=== PATIENT | male | born 1955 | race Caucasian/White ===

== ENCOUNTER 2017-03-03 20:58 | Inpatient (IN) | payer BC ==
[2017-03-03] MEDS ORDERED: NITROGLYCERIN SL TABS 0.4 MG TAB SUBLINGUAL PRN (21:34)
[2017-03-03] MEDS ORDERED: MORPHINE SULFATE 4 MG/ML SYRINGE IV PRN (21:34)
[2017-03-03] MEDS ORDERED: DILTIAZEM 5 MG/ML 5 ML VIAL IVP STA (21:34)
[2017-03-03] MEDS ORDERED: ASPIRIN 81 MG CHEW PO STA (21:34)
[2017-03-03] MEDS ORDERED: DILTIAZEM 125 MG in SODIUM CHLORIDE 0.9% 100 ML IV ONE (21:45)
[2017-03-03] MEDS: HEPARIN SODIUM,PORCINE/D5W PMX 25,000 UNIT in DEXTROSE/WATER 1 500ML.BAG IV SCH (22:53)
--- NOTE | 2017-03-03 23:12 | ED ---
General Adult HPI - General Chief complaint: Arrhythmia/Palpitations Stated complaint: A Fib Time Seen by Provider: 03/03/17 21:20 Source: patient, RN notes reviewed, old records reviewed Mode of arrival: EMS Limitations: no limitations - History of Present Illness Initial comments: This is a 61-year-old male the ER for evaluation. Patient is a transfer patient was accepted in transfer regards to shortness of breath, patient found to be in A. fib with RVR which is new onset for this patient. Patient has no noted new medical history. Having occasional pain, mild chest pain. No fevers no cough no congestion, no travel history denies drugs or alcohol. - Related Data Home Medications Medication Instructions Recorded Confirmed Ibuprofen [Motrin] 400 mg PO BID PRN 03/03/17 03/03/17 diphenhydrAMINE HCL [Benadryl] 25 mg PO BID PRN 03/03/17 03/03/17 Allergies Allergy/AdvReac Type Severity Reaction Status Date / Time No Known Allergies Allergy Verified 03/03/17 21:24 Review of Systems ROS Statement: Those systems with pertinent positive or pertinent negative responses have been documented in the HPI. ROS Other: All systems not noted in ROS Statement are negative. Past Medical History Past Medical History: No Reported History Additional Past Medical History / Comment(s): testicular cancer History of Any Multi-Drug Resistant Organisms: None Reported Past Surgical History: Hernia Repair, Orthopedic Surgery Additional Past Surgical History / Comment(s): pectoral muscle surgery, Past Psychological History: No Psychological Hx Reported Smoking Status: Never smoker Past Alcohol Use History: Occasional Past Drug Use History: None Reported General Exam Limitations: no limitations General appearance: alert, in no apparent distress Head exam: Present: atraumatic, normocephalic, normal inspection Eye exam: Present: normal appearance, PERRL, EOMI. Absent: scleral icterus, conjunctival injection, periorbital swelling ENT exam: Present: normal exam, mucous membranes moist Neck exam: Present: normal inspection. Absent: tenderness, meningismus, lymphadenopathy Respiratory exam: Present: normal lung sounds bilaterally. Absent: respiratory distress, wheezes, rales, rhonchi, stridor Cardiovascular Exam: Present: tachycardia, irregular rhythm, normal heart sounds. Absent: systolic murmur, diastolic murmur, rubs, gallop, clicks GI/Abdominal exam: Present: soft, normal bowel sounds. Absent: distended, tenderness, guarding, rebound, rigid Extremities exam: Present: normal inspection, full ROM, normal capillary refill. Absent: tenderness, pedal edema, joint swelling, calf tenderness Back exam: Present: normal inspection Neurological exam: Present: alert, oriented X3, CN II-XII intact Psychiatric exam: Present: normal affect, normal mood Skin exam: Present: warm, dry, intact, normal color. Absent: rash Course Vital Signs 03/03/17 03/03/17 03/03/17 21:03 21:18 22:18 Temperature 97.9 F Pulse Rate 137 H 155 H Pulse Rate [ 139 H [employer] ] Respiratory 16 18 Rate Blood Pressure 110/86 109/69 O2 Sat by Pulse 94 L 95 Oximetry 03/03/17 23:08 Temperature Pulse Rate 130 H Pulse Rate [ [employer] [place] [employer] ] Respiratory 18 Rate Blood Pressure 104/72 O2 Sat by Pulse 95 Oximetry - Reevaluation(s) Reevaluation #1: 03/03/17 23:11 Patient's transfer paperwork is thoroughly reviewed Reevaluation #2: 03/03/17 23:11 Patient heart is improving with Cardizem, rate control EKG Findings - EKG Comments: EKG Findings:: EKG shows A. fib with RVR rate 140, QRS 100, QTc 503 Medical Decision Making - Medical Decision Making 61-year-old ER with new onset A. fib with RVR, patient is admitted for rate control and anticoagulation, patient will be kept on telemetry serial troponins have a cardiac evaluation Critical Care Time Critical Care Time: Yes Total Critical Care Time: 31 Disposition Clinical Impression: Atrial fibrillation, Atrial fibrillation with RVR Disposition: ADMITTED IP TO THIS HOSP Condition: Fair Referrals: Ganga Lizama MD [Primary Care Provider] - 1-2 days
[2017-03-04 02:14] VITALS: BMI 26.9
[2017-03-04 06:35] LABS: Mean Platelet Volume 8.3
[2017-03-04 06:48] LABS: Cholesterol 167 mg/dL (<200); HDL Cholesterol 33 mg/dL (40-60); Triglycerides 114 mg/dL (<150)
[2017-03-04 06:51] LABS: Creatine Kinase 33 U/L (55-170)
[2017-03-04 07:04] LABS: Creatine Kinase MB 0.5 ng/mL (0.0-2.4); Troponin I <0.012 ng/mL (0.000-0.034)
[2017-03-04] MEDS: ATORVASTATIN 80 MG TAB PO SCH (07:58)
[2017-03-04] MEDS: HEPARIN SODIUM,PORCINE 5,000 UNIT/ML 1 ML VIAL IV PRN ×2 (08:05→18:00)
[2017-03-04] MEDS ORDERED: ASPIRIN 325 MG TAB PO SCH (09:00)
[2017-03-04 10:26] LABS: ALT 42 U/L (21-72); AST 20 U/L (17-59); Alkaline Phosphatase 100 U/L (38-126); Anion Gap 8 mmol/L; Blood Urea Nitrogen 24 mg/dL (9-20); Calcium 8.9 mg/dL (8.4-10.2); Carbon Dioxide 26 mmol/L (22-30); Chloride 108 mmol/L (98-107); Glucose 132 mg/dL (74-99); Magnesium 2.2 mg/dL (1.6-2.3); Non-African American GFR(MDRD) >60 (>60 ml/min/1.73 sqM); Potassium 3.8 mmol/L (3.5-5.1); Sodium 142 mmol/L (137-145); Total Bilirubin 0.7 mg/dL (0.2-1.3); Total Protein 5.9 g/dL (6.3-8.2)
--- NOTE | 2017-03-04 11:01 | ECHOF ---
Referral Reason:New-onset A. fib MEASUREMENTS -------- HEIGHT: 180.3 cm WEIGHT: 84.8 kg BP: 112/72 IVSd: 1.0 cm (0.6 - 1.1) LVIDd: 3.5 cm (3.9 - 5.3) LVPWd: 0.9 cm (0.6 - 1.1) IVSs: 1.6 cm LVIDs: 1.5 cm LVPWs: 1.7 cm Ao Diam: 2.9 cm (2.0 - 3.7) AV Cusp: 1.6 cm (1.5 - 2.6) LA Diam: 2.7 cm (2.7 - 3.8) MV EXCURSION: 11.800 mm (> 18.000) MV EF SLOPE: 45 mm/s (70 - 150) EPSS: 0.2 cm RAP: 5.00 mmHg RVSP: 29.68 mmHg FINDINGS -------- Atrial fibrillation. This was a technically good study. Left ventricular wall thickness is normal. Overall left ventricular systolic function is normal with, an EF between 55 - 60 %. The right ventricle is normal in size and function. The left atrium is normal in size. The right atrium is normal in size. The aortic valve is trileaflet, and appears structurally normal. No aortic stenosis or regurgitation. The mitral valve leaflets are mildly thickened. There is trace mitral regurgitation. Trace tricuspid regurgitation present. The right ventricular systolic pressure, as measured by Doppler, is 29.68mmHg. Pulmonic valve appears structurally normal. The aortic root size is normal. The pericardium is normal. CONCLUSIONS -------- 1. Atrial fibrillation. 2. There is trace mitral regurgitation. 3. Trace tricuspid regurgitation present. 4. The right ventricular systolic pressure, as measured by Doppler, is 29.68mmHg. 5. Pulmonic valve appears structurally normal. 6. The aortic root size is normal. 7. The pericardium is normal. 8. This was a technically good study. 9. Left ventricular wall thickness is normal. 10. Overall left ventricular systolic function is normal with, an EF between 55 - 60 %. 11. The right ventricle is normal in size and function. 12. The left atrium is normal in size. 13. The right atrium is normal in size. 14. The aortic valve is trileaflet, and appears structurally normal. No aortic stenosis or regurgitation. 15. The mitral valve leaflets are mildly thickened. GLOBAL PRESIDENT: Anh Gomez RDCS
--- NOTE | 2017-03-04 11:29 | P.CRDCN ---
History of Present Illness Consult date: 03/04/17 Requesting physician: Keegan Herman Consult reason: atrial fibrillation Chief complaint: Shortness of breath History of present illness: This is a very pleasant 61-year-old gentleman with history of testicular cancer and prior chemotherapy approximately 20 years ago, no prior documented history of hypertension, no diabetes, no hyperlipidemia who presented to his physician's office with symptoms of shortness of breath. Patient was referred to go to [facility] to have an EKG performed. EKG performed at [facility] revealed atrial fibrillation with a rapid ventricular response, therefore patient was kept in the emergency room and hence transferred here to [facility] for further treatment and evaluation. Patient was initiated on IV heparin as well as IV Cardizem. According to the patient, he states that he gets episodes of shortness of breath occasionally, his primary care doctor told him it is likely episodes of atrial fibrillation and instructed him to take an aspirin every time this happens. So the patient has been experiencing intermittent shortness of breath for which he actually takes ibuprofen, and shortly thereafter symptoms resolve. On this occasion of shortness of breath the symptoms persisted so he did go to his doctor's office for further evaluation. Laboratory data performed at [facility], white blood cell count 9.9, hemoglobin 15.3, platelets 237, sodium 139, potassium 4.7, BUN 26, creatinine 1.0. Troponin less than 0.012. BNP level 6466. Magnesium level II.4. D-dimer 0.5. EKG performed on arrival here showed atrial fibrillation with rapid ventricular response. Echocardiogram with Doppler study was performed which revealed an ejection fraction of 55-60%. Blood pressure on arrival 110/80 with a heart rate of 130. Patient continues to be in atrial fibrillation this morning, heart rate in the 80s. At the time of my examination, patient feels well, denies any palpitations, breathing overall is stable. Past Medical History Past Medical History: No Reported History Additional Past Medical History / Comment(s): testicular cancer History of Any Multi-Drug Resistant Organisms: None Reported Past Surgical History: Hernia Repair, Orthopedic Surgery Additional Past Surgical History / Comment(s): pectoral muscle surgery, Past Psychological History: No Psychological Hx Reported Smoking Status: Never smoker Past Alcohol Use History: Occasional Past Drug Use History: None Reported - Past Family History Father Family Medical History: Myocardial Infarction ([place]) Mother Family Medical History: Cancer Medications and Allergies Home Medications Medication Instructions Recorded Confirmed Type Ibuprofen [Motrin] 400 mg PO BID PRN 03/03/17 03/03/17 History diphenhydrAMINE HCL [Benadryl] 25 mg PO BID PRN 03/03/17 03/03/17 History Allergies Allergy/AdvReac Type Severity Reaction Status Date / Time No Known Allergies Allergy Verified 03/03/17 21:24 Physical Exam Vitals: Vital Signs Temp Pulse Pulse Resp BP BP Pulse Ox 03/04/17 07:47 97.1 F L 87 18 112/72 97 03/04/17 04:00 97.6 F 85 18 97/61 97 03/04/17 03:34 18 03/04/17 02:09 87 16 123/67 95 03/04/17 01:49 97.1 F L 120 H 18 106/77 95 03/04/17 00:59 105 H 18 102/67 95 03/03/17 23:59 118 H 18 108/80 95 03/03/17 23:08 130 H 18 104/72 95 03/03/17 22:18 155 H 18 109/69 95 Intake and Output 03/03/17 03/04/17 03/04/17 22:59 06:59 14:59 Intake Total 200 424.901 Output Total 450 Balance 200 -25.099 Intake: Intake, IV Titration 304.901 Amount Diltiazem 125 mg In 25 Sodium Chloride 0.9% 100 ml @ 5 MG/HR 5 mls/hr IV .Q24H ONE Rx#:[id number] Heparin Sodium,Porcine/ 279.901 D5w Pmx 25,000 unit In Dextrose/Water 1 500ml. bag @ 12 UNITS/KG/HR 19. 59 mls/hr IV .Q24H [facility] Rx #:[id number] Oral 200 120 Output: Urine 450 Other: Voiding Method Urinal Weight 85.1 kg PHYSICAL EXAMINATION: HEENT: Head is atraumatic, normocephalic. Pupils equal, round. Neck is supple. There is no elevated jugular venous pressure. HEART EXAMINATION: S1 and S2 irregularly irregular systolic murmur is heard. CHEST EXAMINATION: Lungs are clear with mild diminished air entry to posterior bases. ABDOMEN: Soft, nontender. Bowel sounds are heard. No organomegaly noted. EXTREMITIES: 2+ peripheral pulses with no evidence of peripheral edema and no calf tenderness noted. NEUROLOGIC patient is awake, alert and oriented -3. . Results 03/04/17 05:58 03/04/17 05:58 Cardiac Enzymes 03/04/17 03/04/17 Range/Units 05:58 05:58 AST 20 (17-59) U/L CK-MB (CK-2) 0.5 (0.0-2.4) ng/mL Troponin I <0.012 (0.000-0.034) ng/mL Coagulation 03/04/17 Range/Units 05:58 APTT 34.4 H (22.0-30.0) sec Lipids 03/04/17 Range/Units 05:58 Triglycerides 114 (<150) mg/dL Cholesterol 167 (<200) mg/dL HDL Cholesterol 33 L (40-60) mg/dL CBC 03/04/17 Range/Units 05:58 Plt Count 183 (150-450) k/uL Comprehensive Metabolic Panel 03/04/17 Range/Units 05:58 Sodium 142 (137-145) mmol/L Potassium 3.8 (3.5-5.1) mmol/L Chloride 108 H (98-107) mmol/L Carbon Dioxide 26 (22-30) mmol/L BUN 24 H (9-20) mg/dL Creatinine 0.95 (0.66-1.25) mg/dL Glucose 132 H (74-99) mg/dL Calcium 8.9 (8.4-10.2) mg/dL AST 20 (17-59) U/L ALT 42 (21-72) U/L Alkaline Phosphatase 100 (38-126) U/L Total Protein 5.9 L (6.3-8.2) g/dL Albumin 3.1 L (3.5-5.0) g/dL Current Medications Generic Name Dose Route Start Last Admin Trade Name Freq PRN Reason Stop Dose Admin Aspirin 325 mg 03/04/17 09:00 03/04/17 07:58 Aspirin PO 325 mg DAILY [facility] Administration Atorvastatin Calcium 80 mg 03/04/17 09:00 03/04/17 07:58 Lipitor PO 80 mg DAILY [facility] Administration Heparin Sodium (Porcine) 0 unit 03/03/17 21:34 03/04/17 08:05 Heparin IV 4,000 unit Q6HR PRN Administration Low PTT Protocol Diltiazem HCl 125 mg/ Sodium 125 mls @ 5 mls/hr 03/03/17 21:45 03/03/17 22:23 Chloride IV 03/04/17 21:44 5 mg/hr .Q24H ONE 5 mls/hr Protocol Administration 5 MG/HR Heparin Sodium/Dextrose 25,000 500 mls @ 19.59 mls/hr 03/03/17 21:45 08:04 unit/ IV Solution IV 15 units/kg/hr .Q24H [facility] 24.49 mls/hr Protocol Titration 12 UNITS/KG/HR Morphine Sulfate 4 mg 03/03/17 21:34 Morphine Sulfate (Inj) IV Q4HR PRN Chest Pain Nitroglycerin 0.4 mg 03/03/17 21:34 Nitrostat SUBLINGUAL Q5M PRN Chest Pain Intake and Output 03/03/17 03/04/17 03/04/17 22:59 06:59 14:59 Intake Total 200 424.901 Output Total 450 Balance 200 -25.099 Intake: Intake, IV Titration 304.901 Amount Diltiazem 125 mg In 25 Sodium Chloride 0.9% 100 ml @ 5 MG/HR 5 mls/hr IV .Q24H [facility] Rx#:[id number] Heparin Sodium,Porcine/ 279.901 D5w Pmx 25,000 unit In Dextrose/Water 1 500ml. bag @ 12 UNITS/KG/HR 19. 59 mls/hr IV .Q24H [facility] Rx #:[id number] Oral 200 120 Output: Urine 450 Other: Voiding Method Urinal Weight 85.1 kg 03/04/17 05:58 03/04/17 05:58 EKG Interpretations (text) EKG shows atrial fibrillation with a rapid ventricular response. Assessment and Plan Plan: Assessment and plan #1 atrial fibrillation with rapid ventricular response, paroxysmal. #2 history of testicular cancer with prior chemotherapy approximately 20 years ago. #3 cardiac risk factors negative for hypertension, no diabetes, no hyperlipidemia, father did have bypass surgery in his 70s. Plan Echocardiogram with Doppler study was performed which revealed normal left ventricular systolic function. We will discontinue the IV Cardizem drip and start the patient on oral beta robles. We will also check free T4 and TSH, check to see if the patient has coverage for one of the newer anticoagulants. Further recommendations to follow. DNP note has been reviewed, I agree with a documented findings and plan of care. Patient was seen and examined.
--- NOTE | 2017-03-04 11:57 | XR ---
EXAMINATION TYPE: XR chest 2V DATE OF EXAM: 03/04/2017 11:49 AM COMPARISON: None HISTORY: 61 year-old male shortness of breath TECHNIQUE: Frontal and lateral views FINDINGS: There is reversed S-shaped scoliosis of the cervicothoracic spine. Clamshell wire fixation of the dayanara rnum is noted. There is mild diffuse interstitial prominence which is probably in part chronic. The h eart is borderline in size. There are small pleural effusions with adjacent atelectasis seen on the l ateral view. No leobardo consolidation. IMPRESSION: 1. Thoracic deformity due to reverse S-shaped scoliosis of the cervicothoracic spine. 2. Borderline heart size with diffuse interstitial prominence. This may in part be chronic. Correlate to exclude mild CHF. 3. Small effusions with adjacent atelectasis and/or consolidation.
[2017-03-04] MEDS: METOPROLOL TARTRATE 25 MG TAB PO SCH ×2 (12:16→21:53)
--- NOTE | 2017-03-04 15:50 | HP ---
DATE OF ADMISSION: 03/03/2017 CHIEF COMPLAINT: Shortness of breath. HISTORY OF PRESENT ILLNESS: This is the first known admission for this 61-year-old white male. He presented to the emergency room with shortness of breath. It had been particularly worse over the last several weeks with exertion. He has had no history of fever, chills, cough, hemoptysis, chest pain, syncope, palpitations, etc. REVIEW OF SYSTEMS: He has had no neurologic problems, change in the vision or the hearing, history of heart disease, abdominal pain, melena, hematochezia, hematemesis, renal disease, diabetes, etc. Past medical history, family history, and personal and social histories reveal that he is currently not taking any medication. He is NOT ALLERGIC TO ANY MEDICATION. He had carcinoma of the testicle in 2001 and was treated with chemo. Surgically he has had repair of a pectus excavatum, hammer toes and herniorrhaphy. Family history, personal and social histories are noncontributory. He is not known to have heart disease. PHYSICAL EXAMINATION: Blood pressure is 142/78 with a pulse of 76, respirations of 32, and he is afebrile. In general he appears to be hypogonad. Head, ears, eyes, nose, mouth and throat are unremarkable. Carotids are normal. Neck veins are not distended. Chest demonstrates a marked kyphosis and scoliosis. Breath sounds are heard on both sides and they are normal. Cardiac exam demonstrates what sounds like normal sinus rhythm, with no murmurs or extra sounds. Abdomen is soft, nontender without visceromegaly or masses. Extremities are normal except for deformities of the hands which he relates to being "double jointed." Neurologically he is intact. IMPRESSION: Shortness of breath, etiology unknown. PLAN: 1. Bed rest. 2. D-dimer. 3. Echocardiogram. 4. Look for various etiologies for shortness of breath. He will be referred to Cardiology. ADDENDUM: When he came to the emergency room he was found to have atrial fibrillation with RVR. He does not believe he has had this before. He cannot take aspirin.
--- NOTE | 2017-03-04 15:52 | PN ---
DATE OF SERVICE: 03/04/2017 CHIEF COMPLAINT: Atrial fibrillation with shortness of breath. HISTORY OF PRESENT ILLNESS: This gentleman is doing a little bit better today. He has had no chest pain. PHYSICAL EXAMINATION: He is still in atrial fibrillation and there are no murmurs or extra sounds. ABDOMEN: Soft, nontender. EXTREMITIES: Normal. IMPRESSION: 1. Shortness of breath. 2. Atrial fibrillation with rapid ventricular response. PLAN: 1. Anticoagulate. 2. Cardiology consult. 3. Echocardiogram. 4. D-dimer and rule out pulmonary embolism.
[2017-03-05] MEDS: HEPARIN SODIUM,PORCINE/D5W PMX 25,000 UNIT in DEXTROSE/WATER 1 500ML.BAG IV SCH (06:42)
[2017-03-05] MEDS: METOPROLOL TARTRATE 25 MG TAB PO SCH ×2 (06:44→20:27)
[2017-03-05 06:54] LABS: Mean Platelet Volume 8.2
[2017-03-05] MEDS ORDERED: DEXTROSE 5% IN WATER 100 ML with AMIODARONE 150 MG IV ONE (07:38)
[2017-03-05] MEDS: ATORVASTATIN 80 MG TAB PO SCH (09:51)
[2017-03-05] MEDS: ASPIRIN 81 MG CHEW PO SCH (09:51)
[2017-03-05] MEDS: AMIODARONE 450 MG in DEXTROSE 5% IN WATER 250 ML IV SCH ×4 (10:15→16:24)
[2017-03-05] MEDS: APIXABAN 5 MG TAB PO SCH ×2 (11:10→20:26)
--- NOTE | 2017-03-05 14:29 | P.PN ---
Subjective Principal diagnosis: Atrial fibrillation This is a very pleasant 61-year-old gentleman with history of testicular cancer and prior chemotherapy approximately 20 years ago, no prior documented history of hypertension, no diabetes, no hyperlipidemia who presented to his physician's office with symptoms of shortness of breath. Patient was referred to go to [facility] to have an EKG performed. EKG performed at [facility] revealed atrial fibrillation with a rapid ventricular response, therefore patient was kept in the emergency room and hence transferred here to [facility] for further treatment and evaluation. Patient was initiated on IV heparin as well as IV Cardizem. Yesterday the IV Cardizem was discontinued and patient was initiated on metoprolol tartrate 25 mg one tablet by mouth twice a day. This morning patient again went into a rapid rate, he was given an amiodarone bolus and started on amiodarone drip. He is on Eliquis for anticoagulation. Echo cardiogram with Doppler study was performed which revealed normal left ventricular systolic function. Objective - Vital Signs Vital signs: Vital Signs Temp 97.6 F 03/05/17 11:00 Pulse 95 03/05/17 11:00 Resp 16 03/05/17 11:00 BP 111/76 03/05/17 11:00 Pulse Ox 96 03/05/17 11:00 Intake & Output 03/04/17 03/05/17 03/05/17 18:59 06:59 18:59 Intake Total 1171.419 90.301 360 Output Total 450 900 Balance 721.419 -809.699 360 Weight 85.7 kg Intake: IV 156.72 Heparin Sodium,Porcine/ 156.72 D5w Pmx 25,000 unit In Dextrose/Water 1 500ml. bag @ 12 UNITS/KG/HR 19. 59 mls/hr IV .Q24H [facility] Rx #:[id number] Intake, IV Titration 534.699 90.301 Amount Diltiazem 125 mg In 25 Sodium Chloride 0.9% 100 ml @ 5 MG/HR 5 mls/hr IV .Q24H [facility] Rx#:[id number] Heparin Sodium,Porcine/ 509.699 90.301 D5w Pmx 25,000 unit In Dextrose/Water 1 500ml. bag @ 12 UNITS/KG/HR 19. 59 mls/hr IV .Q24H [facility] Rx #:[id number] Oral 480 360 Output: Urine 450 900 Other: Voiding Method Urinal # Voids 1 1 - Exam PHYSICAL EXAMINATION: HEENT: Head is atraumatic, normocephalic. Pupils equal, round. Neck is supple. There is no elevated jugular venous pressure. HEART EXAMINATION: Heart S1, S2 irregularly irregular . No murmur or gallop heard. CHEST EXAMINATION: Lungs are clear to auscultation and precussion. No chest wall tenderness is noted on palpation or with deep breathing. ABDOMEN: Soft, nontender. Bowel sounds are heard. No organomegaly noted. EXTREMITIES: 2+ peripheral pulses with no evidence of peripheral edema and no calf tenderness noted. NEUROLOGIC patient is awake, alert and oriented -3. . - Labs CBC & Chem 7: 03/05/17 06:13 03/04/17 05:58 Labs: Abnormal Lab Results - Last 24 Hours (Table) 03/04/17 03/05/17 03/05/17 Range/Units 14:11 00:40 06:19 APTT 43.9 H 48.5 H 53.3 H (22.0-30.0) sec Assessment and Plan Plan: Assessment and plan #1 atrial fibrillation with rapid ventricular response, paroxysmal. #2 history of testicular cancer with prior chemotherapy approximately 20 years ago. #3 cardiac risk factors negative for hypertension, no diabetes, no hyperlipidemia, father did have bypass surgery in his 70s. Plan Echocardiogram with Doppler study below the normal left ventricular systolic function. We will discontinue the IV heparin and start the patient on Eliquis 5 mg one tablet by mouth twice a day. Initiate amiodarone bolus and drip per protocol. DNP note has been reviewed, I agree with a documented findings and plan of care. Patient was seen and examined.
[2017-03-06] MEDS: AMIODARONE 450 MG in DEXTROSE 5% IN WATER 250 ML IV SCH ×4 (00:15→06:53)
--- NOTE | 2017-03-06 06:49 | PN ---
CHIEF COMPLAINT: New onset atrial fibrillation and hypogonadism. HISTORY OF PRESENT ILLNESS: This gentleman is doing fairly well and he has had no problems. He has had no pain, shortness of breath, etc. and he remains in atrial fibrillation with rapid ventricular response at time going up to about 150 beats a minute. PHYSICAL EXAM: Chest is clear. Cardiac exam is unchanged with atrial fibrillation. ABDOMEN: Soft, nontender. IMPRESSION: 1. New-onset atrial fibrillation. 2. History of cancer of the testicle. 3. Hypogonadism. PLAN: Await the results of the echo and any further recommendations from Cardiology. Depending on his MINAL score, he will be anticoagulated appropriately.
[2017-03-06 07:23] LABS: Mean Platelet Volume 8.7
[2017-03-06] MEDS: METOPROLOL TARTRATE 25 MG TAB PO SCH (07:44)
[2017-03-06] MEDS: ASPIRIN 81 MG CHEW PO SCH (07:44)
[2017-03-06] MEDS: ATORVASTATIN 80 MG TAB PO SCH (07:44)
[2017-03-06] MEDS: APIXABAN 5 MG TAB PO SCH ×2 (07:44→17:58)
--- NOTE | 2017-03-06 11:07 | CDI ---
In responding to this query, please exercise your independent professional judgment. The [facility] Coding Staff and Clinical Documentation Specialists appreciate your assistance in clarifying documentation, maintaining compliance with coding guidelines, accurately documenting patients condition and capturing severity of illness. The fact that a question is asked does not imply that any particular answer is desired or expected. Communication forms are a method of clarifying documentation and are not made part of the Legal Health Record. Thank you in advance for your clarification. Last Revision, September [address] [facility] [place] [address] Documentation Clarification Form Date: 03/06/2017 10:50:00 AM From: Eden Valdez RN, CCDS Admit Date: 03/03/2017 9:34:00 PM Patient Name: Jd Edmondson Visit Number: [id number] Dr. Koffi Liu/ Grace Pacheco DNP Atrial fibrillation is documented in the H&P and Cardiology Consult and requires further specificity. History/Risk Factors: hypogonadism Clinical Indicators: Current Documentation new onset atrial fibrillation EKG/telemetry: AF RVR Labs: TSH 9.58 Treatment: Consults: Cardiology IV Amio Drip, IV Cardizem In your professional opinion, can you please clarify the type of atrial fibrillation, if known? Chronic/Permanent Paroxysmal Persistent Other, please specify Unable to determine Please document in your progress notes and discharge summary in order to capture severity of illness and risk of mortality. Include clinical findings that support your diagnosis. FYI: Press F11 to launch patient chart Place X here if this finding has no clinical significance, is not applicable or if you are not able to provide any additional documentation. CRISTINOD
[2017-03-06 12:21] VITALS: BP 138/94; PULSE 68; RESP 18; TEMP 98.4
--- NOTE | 2017-03-06 12:59 | P.PN ---
Subjective 61-year-old male seen and examined currently resting in bed. Patient continues to have episodes of paroxysmal atrial fibrillation with a rapid ventricular response. Currently the monitor showing sinus. Did have an episode around 3: 30 in the morning where the heart rate went up in the 130s. Currently patients being followed by cardiology service for treatment of paroxysmal atrial fibrillation they recommended the beta robles the increase currently on 25 of Lopressor twice a day would increase it to 50 Lopressor twice a day monitor the response patient currently is on eliquis echocardiogram was obtained and showed normal LV systolic function Objective - Vital Signs Vital signs: Vital Signs Temp 98.4 F 03/06/17 12:00 Pulse 68 03/06/17 12:00 Resp 18 03/06/17 12:00 BP 138/94 03/06/17 12:00 Pulse Ox 97 03/06/17 12:00 Intake & Output 03/05/17 03/06/17 03/06/17 18:59 06:59 18:59 Intake Total 932.36 449.982 240 Balance 932.36 449.982 240 Weight 86.8 kg Intake: IV 200 Amiodarone 450 mg In 200 Dextrose 5% in Water 250 ml @ 1 MG/MIN 34.53 mls/ hr IV .Q7H31M [facility] Rx#: [id number] Intake, IV Titration 212.36 249.982 Amount Amiodarone 450 mg In 212.36 249.982 Dextrose 5% in Water 250 ml @ 1 MG/MIN 34.53 mls/ hr IV .Q7H31M [facility] Rx#: [id number] Oral 720 240 Other: Voiding Method Urinal # Voids 1 - Exam Physical exam 61-year-old male resting in bed appears in no acute distress denies heart palpitations dizziness lightheadedness or chest pain Lungs essentially clear adequate air movement Heart S1-S2 audible and regular monitor sinus the rate in the 80s to 90s denying chest pain Abdomen soft nontender Extremities no edema noted - Labs CBC & Chem 7: 03/06/17 06:43 03/04/17 05:58 Assessment and Plan Plan: Impression Present on admission heart palpitation shortness of breath suspect due to episode of atrial fibrillation with a rapid ventricular response Paroxysmal atrial fibrillation History of testicle cancer prior chemotherapy diagnosed 20 years prior Echocardiogram done this admission shows normal LV systolic function Abnormal lab values magnesium 1.4 on admission Plan Await cardiology's recommendations Continue to monitor blood pressure and heart rate adjust the antihypertensive meds as indicated Continue with anticoagulation elquist Increase the Lopressor to 50 twice a day and monitor Repeat labs in the morning Further recommendations pending will follow The above dictated assessment and findings were discussed with dr comfort Escobedo and the plan of care have been dictated as directed. Edilma Merritt nurse practitioner acting as a scribe for dr moyer
[2017-03-06] MEDS ORDERED: METOPROLOL TARTRATE 25 MG TAB PO ONE (13:00)
--- NOTE | 2017-03-06 13:57 | PN ---
DATE OF SERVICE: 03/06/2017 CHIEF COMPLAINT: Atrial fibrillation with rapid ventricular response and hypogonadism. HISTORY OF PRESENT ILLNESS: This gentleman is doing well. He feels well and he has had no chest pain, shortness of breath, etc. and he is back in sinus rhythm. PHYSICAL EXAM: Chest is clear. Cardiac exam is normal. ABDOMEN: Soft, nontender. IMPRESSION: 1. Atrial fibrillation with rapid ventricular response. 2. Hypergonadism following testicular cancer. PLAN: He will probably be able to go home today. We will wait to see what his echocardiogram shows and decide when what his MINAL score is in order to determine what anticoagulant he should be on.
--- NOTE | 2017-03-06 14:43 | P.PN ---
Subjective Principal diagnosis: atrial fibrillation A pleasant 61-year-old gentleman with a history of testicular cancer and prior chemotherapy approximately 20 years ago. He has no prior history of hypertension, diabetes or hyperlipidemia. He presented to his physician's office with symptoms of shortness of breath and was referred to go to [facility] to have an EKG. EKG performed at [place] showed atrial fibrillation with rapid ventricular response and therefore the patient was transferred here to [facility]. He is on Eliquis for anticoagulation. Currently maintaining sinus rhythm, on metoprolol tartrate 50 mg by mouth twice a day. Objective - Vital Signs Vital signs: Vital Signs Temp 98.4 F 03/06/17 12:00 Pulse 68 03/06/17 12:00 Resp 18 03/06/17 12:00 BP 138/94 03/06/17 12:00 Pulse Ox 97 03/06/17 12:00 Intake & Output 03/05/17 03/06/17 03/06/17 18:59 06:59 18:59 Intake Total 932.36 449.982 240 Balance 932.36 449.982 240 Weight 86.8 kg Intake: IV 200 Amiodarone 450 mg In 200 Dextrose 5% in Water 250 ml @ 1 MG/MIN 34.53 mls/ hr IV .Q7H31M [facility] Rx#: [id number] Intake, IV Titration 212.36 249.982 Amount Amiodarone 450 mg In 212.36 249.982 Dextrose 5% in Water 250 ml @ 1 MG/MIN 34.53 mls/ hr IV .Q7H31M [facility] Rx#: [id number] Oral 720 240 Other: Voiding Method Urinal # Voids 1 - Exam PHYSICAL EXAMINATION: HEENT: Head is atraumatic, normocephalic. Pupils equal, round. Neck is supple. There is no elevated jugular venous pressure. HEART EXAMINATION: Heart sounds regular, S1 and S2 normal. No murmur or gallop heard. CHEST EXAMINATION: Lungs are clear to auscultation and precussion. No chest wall tenderness is noted on palpation or with deep breathing. ABDOMEN: Soft, nontender. Bowel sounds are heard. No organomegaly noted. EXTREMITIES: 2+ peripheral pulses with no evidence of peripheral edema and no calf tenderness noted. NEUROLOGIC patient is awake, alert and oriented x3. . - Labs CBC & Chem 7: 05/05/17 06:43 03/04/17 05:58 Assessment and Plan Plan: Assessment and plan #1 paroxysmal atrial fibrillation #2 history of testicular cancer with prior chemotherapy approximately 20 years ago #3 cardiac risk factors negative for hypertension, diabetes and hyperlipidemia, father did have bypass surgery in his 70s From cardiac standpoint, we agree with increasing dose of metoprolol to 50 mg by mouth twice a day. Continue anticoagulation. We anticipate the patient will be discharged within the next 24 hours. AGRONOMY RESEARCH MANAGER note has been reviewed, I agree with a documented findings and plan of care. Patient was seen and examined.
--- NOTE | 2017-03-06 20:35 | DS ---
DATE OF ADMISSION: 03/03/2017 DATE OF DISCHARGE: 03/06/2017 CHIEF COMPLAINT: Palpitations, lightheadedness and chest pain. HISTORY OF PRESENT ILLNESS AND PHYSICAL EXAMINATION: Details of this man's history and physical can be found in the initial workup. LABORATORY STUDIES: While he was in hospital he had laboratory studies, details of which can be found in the laboratory section of his chart. COURSE IN THE HOSPITAL: After admission he was placed on bed rest, started on intravenous fluids, and he had serial EKGs and enzymes and they were normal. He remained in atrial fibrillation with a varying ventricular response. He eventually converted to sinus rhythm and was doing well. It was felt that he could be discharged. He will go home on light activity about the house and he will be on: 1. Apixaban 5 mg twice a day. 2. Metoprolol 50 mg b.i.d. He has his own physician he can follow up with, and we will contact him after discharge via the complex healthcare liaison. FINAL DIAGNOSES: 1. Atrial fibrillation with rapid ventricular response. 2. 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 OPERATIONS: None. CONSULTATIONS: Cardiology. He is improved.
[2017-03-06] MEDS ORDERED: METOPROLOL TARTRATE 50 MG TAB PO SCH (21:00)
== END 2017-03-06 19:06 | disposition home or self-care (01) | DRG 310 ==
LOC: EC 20:58 → 6SEL 21:34
PROVIDERS: ADMIT Family Medicine; ATTEND Family Medicine
DX: I48.0 Paroxysmal atrial fibrillation (principal); E89.5 Postprocedural testicular hypofunction; Z85.47 Personal history of malignant neoplasm of testis; Z92.21 Personal history of antineoplastic chemotherapy; Z79.899 Other long term (current) drug therapy; Z82.49 Family history of ischemic heart disease and other diseases of the circulatory system
CPT/HCPCS: 71020; 80053; 80061; 82550; 82553; 83735; 84439; 84443; 84484; 85049; 85730; 93005; 93306; 96365; 96366; 96368; 96376; 99291

== ENCOUNTER → 2023-12-14 | Outpatient (CLI) | payer MEDICARE ==
--- NOTE | 2023-12-17 15:08 | CT ---
EXAMINATION TYPE: CT chest wo con DATE OF EXAM: 12/14/2023 COMPARISON: None HISTORY: interstitial lung disease CT DLP: 1111 mGycm, Automated exposure control for dose reduction was used. CONTRAST: None TECHNIQUE: Axial images were obtained at 1 mm thick sections at 10 mm intervals. This will limit po rtions of the examination which may not be visualized within the [id number]. Images were obtained in the prone and supine views. FINDINGS: Portion of the thyroid visualized is normal. No suspicious lung nodules or focal infiltrat es are present. Some mild atelectasis in the posterior sulcus may be present. There is some low density increased size structures adjacent to the ascending thoracic aorta measuri ng 1.7 cm, series 9 image 8. This could be a lymph node. The ascending aorta diameter at the level of the main pulmonary artery is 3.8 cm. The main pulmonary artery diameter at the bifurcation is 2.[address] sections are obtained through the upper abdomen. Abdomen is essentially unremarkable. IMPRESSION: 1. There may be an enlarged lymph node identified on supine expiration standard CT chest with contras t could confirm and evaluate for alternative etiologies. 2. Mild atelectatic density may be in the posterior right sulcus.
== END | disposition home or self-care (01) ==
LOC: RADCTMAIN 12:08
PROVIDERS: ATTEND Internal Medicine
DX: J84.9 Interstitial pulmonary disease, unspecified (principal)
CPT/HCPCS: 71250

== ENCOUNTER 2023-12-23 08:33 | Day surgery (SDC) | payer BC, MEDICARE ==
[2023-12-23] MEDS: SODIUM CHLORIDE 0.9% 1,000 ML IV SCH (09:15)
[2023-12-23 09:31] VITALS: RESP 18; TEMP 97.7
[2023-12-23 10:14] LABS: African American GFR (CKD) >90 (>60 ml/min/1.73 sqM); Anion Gap 5 mmol/L; Blood Urea Nitrogen 28 mg/dL (9-20); Calcium 9.4 mg/dL (8.4-10.2); Carbon Dioxide 28 mmol/L (22-30); Chloride 104 mmol/L (98-107); Glucose 106 mg/dL (74-99); Non-African American GFR(CKD) >90 (>60 ml/min/1.73 sqM); Potassium 5.1 mmol/L (3.5-5.1); Sodium 137 mmol/L (137-145)
[2023-12-23] MEDS ORDERED: PROPOFOL 10 MG/ML 20 ML VIAL IV ONE (10:22)
--- NOTE | 2023-12-23 10:41 | P.HPCAR ---
History of Present Illness This is Dr. Arriaga dictating an H/P on this patient The patient was interviewed and examined IMPRESSION / ASSESSMENT: Persistent atrial fibrillation, symptomatic Started on amiodarone in the last week of November Metoprolol dose was increased to 100 mg twice daily for rate control during atrial fibrillation PLAN: Electrical cardioversion today Based on the heart rate in sinus rhythm I will adjust the dose of metoprolol Continue amiodarone 200 mg p.o. daily for the next 3 months and then reduce the dose down to 100 mg p.o. daily Follow TSH and liver function in the future Continue rosuvastatin Continue Eliquis 5 mg twice daily HPI Patient continues to complain of shortness of breath with exertion and activities of daily living He becomes very tired and fatigued No syncope Tolerated amiodarone ROS: No fever chills or rigors, no cough, phlegm or expectoration, no nausea, vomiting or diarrhea, no hematuria, dysuria, no musculoskeletal complaints, no strokes or seizures, no skin lesions. EXAMINATION: 120/87 mmHg pulse rate in the 70s irregular Breath sounds are clear no rhonchi no crackles Heart sounds S1-S2 normal soft systolic murmur Abdomen soft No JVD No lower extremity edema Alert and oriented REVIEW OF LABS, ECG & MEDICAL DATA Sodium 137, potassium 5.1, chloride 104 and bicarb 28 BUN 28 and creatinine 0.8 Normal calcium GFR normal Physical Exam Vitals: Vital Signs Temp Pulse Resp BP Pulse Ox 12/23/23 09:09 97.7 F 78 18 120/87 94 L Intake and Output 12/22/23 12/23/23 12/23/23 22:59 06:59 14:59 Intake Total 170 Balance 170 Intake: IV 170 Other: Weight 77.9 kg Past Medical History Past Medical History: Atrial Fibrillation, Hyperlipidemia Additional Past Medical History / Comment(s): SEE H & P COMPLETED BY DR. ARRIAGA. testicular cancer. insomnia History of Any Multi-Drug Resistant Organisms: None Reported Past Surgical History: Hernia Repair Additional Past Surgical History / Comment(s): pectoral muscle surgery. testical removed. cyst on elbow. bilateral cataract removed. Past Anesthesia/Blood Transfusion Reactions: No Reported Reaction Past Psychological History: No Psychological Hx Reported Smoking Status: Never smoker Past Alcohol Use History: Occasional Past Drug Use History: None Reported - Past Family History Father Family Medical History: Myocardial Infarction ([place]) Mother Family Medical History: Cancer Physical Examination Vital Signs Temp Pulse Resp BP Pulse Ox 12/23/23 09:09 97.7 F 78 18 120/87 94 L Intake and Output 12/22/23 12/23/23 12/23/23 22:59 06:59 14:59 Intake Total 170 Balance 170 Intake: IV 170 Other: Weight 77.9 kg Results 12/23/23 09:11 Comprehensive Metabolic Panel 12/23/23 Range/Units 09:11 Sodium 137 (137-145) mmol/L Potassium 5.1 (3.5-5.1) mmol/L Chloride 104 (98-107) mmol/L Carbon Dioxide 28 (22-30) mmol/L BUN 28 H (9-20) mg/dL Creatinine 0.80 (0.66-1.25) mg/dL Glucose 106 H (74-99) mg/dL Calcium 9.4 (8.4-10.2) mg/dL Current Medications Generic Name Dose Route Start Last Admin Trade Name Freq PRN Reason Stop Dose Admin Sodium Chloride 1,000 mls @ 50 mls/hr 12/23/23 06:51 12/23/23 09:15 Saline 0.9% IV 01/22/24 06:52 170 mls .Q20H [facility] Administration Intake and Output 12/22/23 12/23/23 12/23/23 22:59 06:59 14:59 Intake Total 170 Balance 170 Intake: IV 170 Other: Weight 77.9 kg Patient Weight 12/24/23 06:59 Weight 77.9 kg 12/23/23 09:11
--- NOTE | 2023-12-23 10:42 | P.EPPROC ---
- EP Procedure Note Electrophysiology Procedure Note: Diagnosis Persistent atrial fibrillation with symptoms of tiredness fatigue shortness of breath on exertion Underlying hypertrophic cardiomyopathy Started on amiodarone for the last 1 month 200 mg p.o. daily On beta-blockers for rate control and for treatment of HCM Details of procedure Successful electrical cardioversion with a 200 J biphasic shock in the EP configuration to sinus rhythm Plan Twelve-lead EKG Twelve-lead EKG postprocedure shows sinus rhythm KS interval mildly prolonged at 234 ms narrow QRS with a left anterior fascicular block normal ST segments Plan: Reduce metoprolol to 75 mg twice daily Continue amiodarone Continue anticoagulation Follow-up with Dr. Arriaga in about 4 weeks
[2023-12-23 13:39] VITALS: BP 97/58; PULSE 54
== END 2023-12-23 13:16 | disposition home or self-care (01) ==
LOC: CATHEP 08:33
PROVIDERS: ATTEND Internal Medicine Clinical Cardiac Electrophysiology
DX: I48.19 Other persistent atrial fibrillation (principal); I42.2 Other hypertrophic cardiomyopathy; I34.0 Nonrheumatic mitral (valve) insufficiency; I44.4 Left anterior fascicular block; R06.02 Shortness of breath; E78.5 Hyperlipidemia, unspecified; Z82.49 Family history of ischemic heart disease and other diseases of the circulatory system; Z79.01 Long term (current) use of anticoagulants; Z79.899 Other long term (current) drug therapy
CPT/HCPCS: 80048; 92960; J2704

== ENCOUNTER → 2023-12-30 | Outpatient (CLI) | payer MEDICARE ==
--- NOTE | 2023-12-30 20:22 | FL ---
Fluoroscopy for sniff test INDICATION: Difficulty breathing, short of breath FINDINGS: There is diminished excursion of the left diaphragm. Paradoxical motion is not identified. Images obtained: 86. Fluoroscopy time: 46 seconds. DAP: 267.22 IMPRESSION: 1. Diminished excursion of the left diaphragm. Paradoxical motion to confirm paralysis however is not identified at this time.
== END | disposition home or self-care (01) ==
LOC: RADUSWWP 09:17
PROVIDERS: ATTEND Internal Medicine
DX: J98.6 Disorders of diaphragm (principal); R06.02 Shortness of breath
CPT/HCPCS: 76000

== ENCOUNTER 2024-03-22 05:46 | Day surgery (SDC) | payer MEDICARE ==
[2024-03-18 12:26] VITALS: BMI 25.8
[2024-03-22] MEDS: SODIUM CHLORIDE 0.9% 1,000 ML IV ONE ×3 (06:39→12:39)
[2024-03-22 06:40] LABS: Basophils # (A) 0.1 k/uL (0-0.2); Basophils % (A) 2 %; Eosinophils # (A) 0.1 k/uL (0-0.7); Eosinophils % (A) 3 %; HCT 46.8 % (39.0-53.0); HGB 15.5 gm/dL (13.0-17.5); Lymphocytes # (A) 1.7 k/uL (1.0-4.8); Lymphocytes % (A) 32 %; MCH 31.5 pg (25.0-35.0); MCHC 33.1 g/dL (31.0-37.0); MCV 95.2 fL (80.0-100.0); Mean Platelet Volume 8.8; Monocytes # (A) 0.5 k/uL (0-1.0); Monocytes % (A) 9 %; Neutrophils # (A) 2.6 k/uL (1.3-7.7); Neutrophils % (A) 51 %; Platelet Count 153 k/uL (150-450); RBC 4.92 m/uL (4.30-5.90); RDW 14.5 % (11.5-15.5); WBC 5.2 k/uL (3.8-10.6)
[2024-03-22 06:52] LABS: ALT 48 U/L (4-49); AST 41 U/L (17-59); African American GFR (CKD) >90 (>60 ml/min/1.73 sqM); Albumin 4.1 g/dL (3.5-5.0); Alkaline Phosphatase 94 U/L (38-126); Anion Gap 5 mmol/L; Blood Urea Nitrogen 30 mg/dL (9-20); Calcium 9.1 mg/dL (8.4-10.2); Carbon Dioxide 29 mmol/L (22-30); Chloride 106 mmol/L (98-107); Glucose 103 mg/dL (74-99); Non-African American GFR(CKD) >90 (>60 ml/min/1.73 sqM); Potassium 4.1 mmol/L (3.5-5.1); Sodium 140 mmol/L (137-145); Total Bilirubin 0.9 mg/dL (0.2-1.3)
[2024-03-22] MEDS ORDERED: PROPOFOL 10 MG/ML 20 ML VIAL IV ONE (07:52)
[2024-03-22] MEDS ORDERED: HEPARIN SODIUM,PORCINE 5,000 UNIT/ML 1 ML VIAL ONE (07:52)
[2024-03-22] MEDS ORDERED: PHENYLEPHRINE 10 MG/ML VIAL ONE (07:52)
[2024-03-22] MEDS ORDERED: SUCCINYLCHOLINE CHLORIDE 200 MG/10 ML VIAL IV ONE (07:52)
[2024-03-22] MEDS ORDERED: MIDAZOLAM 2 MG/2 ML VIAL ONE (07:52)
[2024-03-22] MEDS ORDERED: fentaNYL (PF) 50 MCG/ML 2 ML AMP ONE (07:52)
[2024-03-22] MEDS ORDERED: FUROSEMIDE 10 MG/ML 2 ML VIAL ONE (07:52)
[2024-03-22] MEDS ORDERED: HEPARIN SODIUM,PORCINE 10,000 UNIT/ML 1 ML VIAL ONE (07:52)
[2024-03-22] MEDS ORDERED: PROTAMINE SULFATE 10 MG/ML 5 ML VIAL ONE ×2 (07:52→12:51)
[2024-03-22] MEDS: HEPARIN SOD,PORK IN 0.45% NACL 25,000 UNIT in 0.45% NACL 1 250ML.BAG IV ONE (08:30)
--- NOTE | 2024-03-22 08:31 | P.HPCAR ---
History of Present Illness This is Dr. Arriaga dictating an H/P on this patient The patient was interviewed and examined IMPRESSION / ASSESSMENT: Persistent atrial fibrillation despite oral amiodarone Successful electrical cardioversion on oral amiodarone followed by recurrence Likely left atrial roof atrial tachycardia Hypertrophic cardiomyopathy Severe kyphosis Amiodarone induced hypothyroidism PLAN: Pulmonary vein isolation and linear ablation of the left atrium Continue anticoagulation Avoid hypotension during general anesthesia, IV hydration, avoid stimulants Stop amiodarone completely post ablation HPI Patient has a recurrence of atrial fibrillation, complains of shortness of breath fatigue after going back into [facility] He had an electrical cardioversion performed successfully but his atrial fibrillation recurred Denies any cough expectoration No dizziness or syncope ROS: No fever chills or rigors, no cough, phlegm or expectoration, no nausea, vomiting or diarrhea, no hematuria, dysuria, no musculoskeletal complaints, no strokes or seizures, no skin lesions. EXAMINATION: Normal heart sounds no murmurs at baseline Irregular rhythm Breath sounds are reduced bilaterally Kyphosis noted Abdomen soft Extremities warm no edema Vital stable REVIEW OF LABS, ECG & MEDICAL DATA Currently on amiodarone 100 mg p.o. daily, Eliquis 5 mg twice daily, rosuvastatin 20 mg daily and Toprol-XL 150 mg daily Normal CBC Hemoglobin 15.5 Electrolytes normal BUN/creatinine normal TSH 16.6 Physical Exam Vitals: Vital Signs Temp Pulse Resp BP BP Pulse Ox 03/22/24 06:39 97.7 F 71 16 128/84 135/93 98 Intake and Output 03/21/24 03/22/24 03/22/24 22:59 06:59 14:59 Intake Total 50 0 Balance 50 0 Intake: IV 50 0 Other: Weight 77.8 kg Past Medical History Past Medical History: Atrial Fibrillation, Cancer, Hyperlipidemia Additional Past Medical History / Comment(s): testicular cancer, SEE DR. ARRIAGA"S H & P, SCOLIOSIS History of Any Multi-Drug Resistant Organisms: None Reported Past Surgical History: Hernia Repair, Orthopedic Surgery Additional Past Surgical History / Comment(s): pectoral muscle surgery, LT TESTICLE REMOVED, COLONOSOCPY, CYST REMOVED FROM LEFT ELBOW, CARDIOVERSION Past Anesthesia/Blood Transfusion Reactions: No Reported Reaction Smoking Status: Never smoker - Past Family History Father Family Medical History: Myocardial Infarction ([place]) Mother Family Medical History: Cancer Physical Examination Vital Signs Temp Pulse Resp BP BP Pulse Ox 03/22/24 06:39 97.7 F 71 16 128/84 135/93 98 Intake and Output 03/21/24 03/22/24 03/22/24 22:59 06:59 14:59 Intake Total 50 0 Balance 50 0 Intake: IV 50 0 Other: Weight 77.8 kg Results 03/22/24 06:10 03/22/24 06:10 Cardiac Enzymes 03/22/24 Range/Units 06:10 AST 41 (17-59) U/L CBC 03/22/24 Range/Units 06:10 WBC 5.2 (3.8-10.6) k/uL RBC 4.92 (4.30-5.90) m/uL Hgb 15.5 (13.0-17.5) gm/dL Hct 46.8 (39.0-53.0) % Plt Count 153 (150-450) k/uL Comprehensive Metabolic Panel 03/22/24 Range/Units 06:10 Sodium 140 (137-145) mmol/L Potassium 4.1 (3.5-5.1) mmol/L Chloride 106 (98-107) mmol/L Carbon Dioxide 29 (22-30) mmol/L BUN 30 H (9-20) mg/dL Creatinine 0.85 (0.66-1.25) mg/dL Glucose 103 H (74-99) mg/dL Calcium 9.1 (8.4-10.2) mg/dL AST 41 (17-59) U/L ALT 48 (4-49) U/L Alkaline Phosphatase 94 (38-126) U/L Total Protein 7.0 (6.3-8.2) g/dL Albumin 4.1 (3.5-5.0) g/dL Current Medications Generic Name Dose Route Start Last Admin Trade Name Freq PRN Reason Stop Dose Admin Sodium Chloride 1,000 mls @ 20 mls/hr 03/22/24 07:44 Saline 0.9% IV 04/21/24 07:45 .Q24H [facility] Intake and Output 03/21/24 03/22/24 03/22/24 22:59 06:59 14:59 Intake Total 50 0 Balance 50 0 Intake: IV 50 0 Other: Weight 77.8 kg 03/22/24 06:10 03/22/24 06:10
[2024-03-22] MEDS ORDERED: LIDOCAINE 1% INJ 10MG/ML (20 ML MDV) ONE (08:33)
[2024-03-22] MEDS: LIDOCAINE 1% INJ 10MG/ML (20 ML MDV) SQ ONE (08:47)
[2024-03-22] MEDS: HEPARIN SODIUM (1,000 UNIT/ML) 1,000 UNIT in SODIUM CHLORIDE 0.9% 1,000 ML IRRIGATION ONE (11:14)
[2024-03-22] MEDS: IOPAMIDOL-370 100ML BTL INJ ONE (11:20)
[2024-03-22] MEDS: PROTAMINE SULFATE 10 MG/ML 5 ML VIAL IV ONE (12:52)
--- NOTE | 2024-03-22 13:27 | P.EPPROC ---
- EP Procedure Note Electrophysiology Procedure Note: PROCEDURE A. fib ablation with pulmonary vein isolation at the antral level, left atrial septal ablation, left atrial roof ablation DIAGNOSIS Persistent atrial fibrillation, symptomatic, refractory to therapy with amiodarone RESULT No left atrial appendage mass seen on intracardiac echo Successful A. fib ablation/pulmonary vein isolation of all veins using cryo- ablation and RF Complete entrance block in all 4 veins confirmed Left atrial septal ablation Left atrial roof ablation No evidence for phrenic nerve injury Esophageal deflection YES, right-sided esophagus Electrical cardioversion with a synchronized shock across the chest YES PROCEDURE DETAILS Written informed consent prior to procedure. Patient brought to the EP lab. General anesthesia given. Heparin administered. A city maintained above 300 seconds Both groins prepped and draped per protocol and venous sheaths placed. Esophagus intubated, circa catheter for temperature monitoring an endoscope for possible esophageal deflection. Phrenic nerve monitoring performed. Esophageal temperature monitoring perform ed. Esophageal deflection performed if circa catheter overlapping with the balloon or circa temperature less than 27.5C Intracardiac echocardiography performed. Pericardium evaluated. Left atrial appendage evaluated. Left atrium evaluated along with pulmonary veins Transseptal catheterization performed under fluoroscopic guidance and intracardiac echo guidance Cryoablation sheath exchanged, balloon catheter along with achieve catheter placed in the left atrium. Pulmonary veins isolated in the following sequence: Left superior pulmonary vein followed by left inferior pulmonary vein, followed by right inferior pulmonary vein and lastly right superior pulmonary vein. Phrenic nerve stimulation along with capture thresholds within the SVC and right superior pulmonary vein to identify the phrenic nerve proximity to the cryo- balloon. Pulmonary veins isolated and confirmed with entrance and exit block. Phrenic nerve integrity confirmed at the end of the procedure Ablation of the left atrial roof performed with sequential lesions from the left superior to the right superior pulmonary veins. Voltage mapping performed subsequently revealed a small gap in the middle of the roofline. RF ablation lesions applied across this Anteriorly to achieve complete block Ablation of the left atrial septum performed with cannulation of the superior branch of the right inferior and the inferior branch of the right superior vein to achieve ablation of the posterior septum of the left atrium. Despite that electrograms persisted and therefore RF ablation was performed the left atrial septum anteriorly down to the 6 o'clock position in the right inferior pulmonary vein Ablation of electrograms confirmed. High-output pacing performed. Voltage mapping performed. Activation mapping performed. Complete quiescence of the septum and the right inferior pulmonary vein confirmed Electrical cardioversion performed for persistence of atrial fibrillation despite successful ablation. Diagnostic catheters for the high right atrium, His bundle, coronary sinus placed. LA and RA pressures recorded LA pressure: 20/03/11 Diagnostic EP study with coronary sinus pacing and recording Baseline measurements: AH 90 ms HV and 50 ms AR interval 224 ms, QRS 129 ms and QT 504 ms Sinus cycle length 950 ms Venous sheaths were removed and hemostasis assured with a closure device. [id number] along with flow stasis device around right femoral vein. Patient extubated and transferred to recovery Increase procedural time During ablation multiple attempts had to be made to move the right-sided esophagus a safe distance of the from the pulmonary vein draining cryoablation, to avoid excessive thermal cooling of the esophagus This took extra time and effort to keep the esophagus a safe distance away from the cryoablation balloon. Very large right-sided veins particularly the right inferior pulmonary vein Multiple ablations with subselection of different branches performed. While the right superior pulmonary vein was successfully isolated the right inferior vein still had signals on the anterior inferior aspect Excellent temperatures, in fact very cold temperatures were achieved with right- sided lesions and yet isolation was very difficult Activation mapping as well as scar mapping was performed on the septum and the right-sided veins RF ablation was performed in the septum and this line was connected to the right superior and right inferior pulmonary veins This resulted in complete isolation of the right inferior pulmonary vein also in addition to ablation of the septum Multiple attempts needed for successful cryoablation isolation of the right- sided pulmonary vein PROCEDURES PERFORMED Diagnostic EP study CS pacing and recording Left and right transseptal catheterization Catheter the mapping of the tachycardia Intracardiac echocardiography Pulmonary vein isolation with transseptal and comprehensive EPS, 07003 Extended procedure duration Left atrial roof line, +[id number] Linear ablation, left atrium, +71664 Electrical cardioversion with a synchronized shock across the chest 38470
[2024-03-22] MEDS: SODIUM CHLORIDE 0.9% 1,000 ML IV SCH (14:04)
[2024-03-22] MEDS: ACETAMINOPHEN IV (For NPO) 1,000 MG in EMPTY BAG 1 BAG IVPB ONE (17:46)
[2024-03-22] MEDS: METOPROLOL TARTRATE 25 MG TAB PO SCH (20:59)
[2024-03-22] MEDS: APIXABAN 5 MG TAB PO SCH (20:59)
[2024-03-22] MEDS: ATORVASTATIN 40 MG TAB PO SCH (20:59)
[2024-03-23] MEDS: ACETAMINOPHEN TAB 325 MG TAB PO PRN (00:07)
[2024-03-23 07:53] VITALS: BP 132/76; PULSE 76; RESP 18; TEMP 98.3
--- NOTE | 2024-03-23 08:11 | P.DS ---
Providers Attending physician: Tim Arriaga Primary care physician: Dyan Carreon MD Hospital Course: Patient is doing well. His groins have healed well there is no hematoma there is no swelling He has no chest discomfort he does have a sore throat On examination his heart sounds are normal breath sounds are clear Rhythm is regular Twelve-lead EKG shows sinus rhythm first-degree AV block Impression hypertrophic cardiomyopathy Persistent atrial fibrillation that is failed treatment with amiodarone One of his EKG showed an atrial tachycardia consistent with a roof atrial tachycardia He underwent successful pulmonary vein isolation and ablation of the septum in the left atrial roof This was a difficult ablation and isolation of the very large and obliquely oriented right inferior pulmonary vein was difficult despite excellent occlusion and despite excellent cryo temperatures Finally for complete isolation a septal ablation had to be performed outside of the PVA lines to achieve complete isolation Right superior vein was also difficult to ablate but was successfully ablated with subselection of different venous tributaries Plan Discontinue amiodarone. His TSH was 16.6 and this should recover and improve Continue other medications as before Discharge home today Incentive spirometry and adequate hydration emphasized Avoid sublingual nitroglycerin since he has HOCM Plan - Discharge Summary Discharge Rx Participant: No New Discharge Prescriptions: Discontinued RX: Amiodarone [Cordarone] 100 mg PO HS No Action Apixaban [Eliquis] 5 mg PO BID #60 tab RX: Nitroglycerin Sl Tabs [Nitrostat] 0.4 mg SUBLINGUAL Q5M PRN #25 tab PRN Reason: Chest Pain RX: Tamsulosin [Flomax] 0.4 mg PO QAM RX: Acetaminophen [Tylenol Extra Strength] 500 mg PO Q6H PRN PRN Reason: Pain RX: Rosuvastatin [Crestor] 20 mg PO HS RX: Mirtazapine 7.5 mg PO HS Ascorbic Acid [Vitamin C with Romelia Hips] 100 mg PO DAILY Cholecalciferol (Vitamin D3) [Vitamin D3 (125 MCG = 5,000 IU)] 125 mcg PO DAILY Multivitamins, Thera [Multivitamin (formulary)] 1 tab PO DAILY Zinc Gluconate [Zinc] 50 mg PO DAILY RX: Metoprolol Tartrate [Lopressor] 75 mg PO BID #90 tab RX: Fexofenadine HCl 180 mg PO HS PRN PRN Reason: SEASONAL ALLERGIES Discharge Medication List Apixaban [Eliquis] 5 mg PO BID #60 tab 03/06/17 [Rx] RX: Nitroglycerin Sl Tabs [Nitrostat] 0.4 mg SUBLINGUAL Q5M PRN #25 tab 03/06/17 [Rx] Ascorbic Acid [Vitamin C with Romelia Hips] 100 mg PO DAILY 12/21/23 [History] Cholecalciferol (Vitamin D3) [Vitamin D3 (125 MCG = 5,000 IU)] 125 mcg PO DAILY 12/21/23 [History] Multivitamins, Thera [Multivitamin (formulary)] 1 tab PO DAILY 12/21/23 [History] RX: Acetaminophen [Tylenol Extra Strength] 500 mg PO Q6H PRN 12/21/23 [History] RX: Mirtazapine 7.5 mg PO HS 12/21/23 [History] RX: Rosuvastatin [Crestor] 20 mg PO HS 12/21/23 [History] RX: Tamsulosin [Flomax] 0.4 mg PO QAM 12/21/23 [History] Zinc Gluconate [Zinc] 50 mg PO DAILY 12/21/23 [History] RX: Metoprolol Tartrate [Lopressor] 75 mg PO BID #90 tab 12/23/23 [Rx] RX: Fexofenadine HCl 180 mg PO HS PRN 03/18/24 [History] Follow up Appointment(s)/Referral(s): Tim Arriaga MD [STAFF PHYSICIAN] - 1 Week (Appt on 03/31 @ 1pm) Activity/Diet/Wound Care/Special Instructions: Post EP study - Ablation instructions 1. Keep access sites dry for 2 days. 2. No heavy lifting or straining for 2 days. 3. Avoid bending the hips repeatedly for 2 days. 4. You may go up and down stairs slowly Call if the following is noted 1. Bleeding, increasing swelling or pain at the access sites. 2. Increasing chest discomfort, especially upon taking a deep breath. 3. Increasing shortness of breath, at rest or with exertion. 4. Undue cough / phlegm 5. Difficulty or pain while swallowing. 6. Pain or change in color in the extremities. 7. Fever, chills, rigors. 8. Increasing headache or neurologic symptoms. 9. Dizziness, fainting, palpitations Stop amiodarone Continue Eliquis Discharge Disposition: HOME SELF-CARE
[2024-03-23] MEDS: TAMSULOSIN 0.4 MG CAP.ER.24H PO SCH (08:42)
== END 2024-03-23 13:56 | disposition home or self-care (01) ==
LOC: CATHEP 05:46 → 6NMEDSUR 12:54 → CATHEP 03-23 13:56
PROVIDERS: ATTEND Internal Medicine Clinical Cardiac Electrophysiology
DX: I48.0 Paroxysmal atrial fibrillation (principal); E78.5 Hyperlipidemia, unspecified; Z85.47 Personal history of malignant neoplasm of testis; Z82.49 Family history of ischemic heart disease and other diseases of the circulatory system; Z79.899 Other long term (current) drug therapy; Z79.01 Long term (current) use of anticoagulants; Z98.890 Other specified postprocedural states
CPT/HCPCS: 92960; 93656; 93657; 86900; 86901; 80053; 84443; 85025; 86850; C1759; C1894 ×2; C1769 ×2; C1760 ×2; C1730 ×2; C1731; C1733; C1766; C1732; J2720; J2001; J1644 ×2; J0131; Q9967